=== PATIENT | male | born 1985 | race Caucasian/White ===

== ENCOUNTER 2025-05-06 14:46 | Observation (INO) ==
--- NOTE | 2025-05-06 14:57 | DR.ABDMALE ---
HPI Time seen Time Seen by Provider: 05/06/25 14:54 HPI comment HPI Comment: Patient is a 39-year-old male with history of diverticulitis status post resection with colostomy and reversal who presents to ED with acute onset of diffuse abd pain. Due to pain patient has not able to answer questions appropriately. His significant other in the room is the primary historian. She states that his pain started this morning as a dull ache. He thought it was his normal abdominal cramping and he took a Bentyl. However it progressively got worse throughout the day to the point where he has bent over in agony. He has vomited multiple times today. Emesis is Bilious but nonbloody.Last bowel movement was yesterday and for him it was normal. Denies any hematochezia, melena, or diarrhea. He does feel nauseous currently. He has not taken anything for pain. Denies any fevers, chills, chest pain, or shortness of breath. ROS Review of Systems All Other Systems: Reviewed and Negative PE Vital Signs Vital Signs: Temp Pulse Resp BP Pulse Ox O2 Del Method 05/06/25 20:16 20 05/06/25 20:15 158/85 05/06/25 20:15 71 100 05/06/25 20:13 84 100 05/06/25 19:45 82 99 05/06/25 19:30 68 100 05/06/25 19:30 161/103 05/06/25 19:15 64 99 05/06/25 19:07 97.8 F 67 100 05/06/25 17:21 20 05/06/25 15:32 20 05/06/25 15:10 18 05/06/25 14:56 98.9 F 83 20 149/99 99 Room Air Other Exam Other Exam: GEN: Lying in the position rocking [id number] crying Lungs: CTABL Heart RRR Abdomen: Diffuse abdominal tenderness, no distention, some guarding COURSE Treatment Treatment: CBC, CMP, and CT abd was ordered. He was given 30mg toradol. Reevaluation 1st: Unchanged (Pain not controlled with Toradol. Elevated WBC appreciated. Pt given 2mg [place] with some relief.) 2nd: Unchanged (Relief of pain short lived. CT abd was negative for acute process but did show large stool burden. Will give IV Tylenol and Mag Citrate and re-evaluate. ) ROR Labs Reviewed 05/06/25 15:04 05/06/25 15:04 Laboratory: WBC 12.7 X10^3/uL (3.6-10.0) H 05/06/25 15:04 RBC 4.94 X10^6/uL (4.7-6.0) 05/06/25 15:04 Hgb 13.1 g/dL (13.5-18.0) L 05/06/25 15:04 Hct 39.7 % (42.0-54.0) L 05/06/25 15:04 MCV 80.4 fL (80.0-100.0) 05/06/25 15:04 MCH 26.6 pg (27.0-34.0) L 05/06/25 15:04 MCHC 33.1 g/dL (33.0-35.0) 05/06/25 15:04 RDW 14.5 % (11.6-16.5) 05/06/25 15:04 Plt Count 388 X10^3/uL (150.0-450.0) 05/06/25 15:04 MPV 6.6 fL (7.4-11.0) L 05/06/25 15:04 Neut % (Auto) 83.3 % (42.0-75.0) H 05/06/25 15:04 Lymph % (Auto) 11.7 % (21.0-51.0) L 05/06/25 15:04 [place] % (Auto) 3.6 % (0.0-13.0) 05/06/25 15:04 Eos % (Auto) 0.7 % (0.9-2.9) L 05/06/25 15:04 Baso % (Auto) 0.7 % (0.2-1.0) 05/06/25 15:04 Neut # (Auto) 10.6 x10^3/uL (2.2-4.8) H 05/06/25 15:04 Lymph # (Auto) 1.5 X10^3/uL (1.3-2.9) 05/06/25 15:04 [place] # (Auto) 0.5 x10^3/uL (0.3-0.8) 05/06/25 15:04 Eos # (Auto) 0.1 x10^3/uL (0.0-0.2) 05/06/25 15:04 Baso # (Auto) 0.1 X10^3/uL (0.0-0.1) 05/06/25 15:04 Absolute Nucleated RBC 0.0 /100WBC 05/06/25 15:04 Sodium 140 mmol/L (136-145) 05/06/25 15:04 Corrected Sodium 140 mmol/L (136-145) 05/06/25 15:04 Potassium 4.0 mmol/L (3.5-5.1) 05/06/25 15:04 Chloride 102 mmol/L (98-107) 05/06/25 15:04 Carbon Dioxide 27.7 mmol/L (21-32) 05/06/25 15:04 BUN 12 mg/dL (7-18) 05/06/25 15:04 Creatinine 0.98 mg/dL (0.70-1.30) 05/06/25 15:04 Est GFR (MDRD) Af Amer > 60 (>60) 05/06/25 15:04 Est GFR (MDRD) Non-Af > 60 (>60) 05/06/25 15:04 Glucose 114 mg/dL (65-99) H 05/06/25 15:04 Calcium 9.0 mg/dL (8.5-10.1) 05/06/25 15:04 Corrected Calcium TNP 05/06/25 15:04 Total Bilirubin 0.30 mg/dL (0.2-1.0) 05/06/25 15:04 AST 28 Units/L (15-37) 05/06/25 15:04 ALT 51 Units/L (12-78) 05/06/25 15:04 Alkaline Phosphatase 87 Units/L (46-116) 05/06/25 15:04 Total Protein 8.1 g/dL (6.4-8.2) 05/06/25 15:04 Albumin 4.0 g/dL (3.4-5.0) 05/06/25 15:04 Globulin 4.1 g/dL (2.5-4.5) 05/06/25 15:04 Albumin/Globulin Ratio 1.0 Ratio (1.1-2.1) L 05/06/25 15:04 Lipase 45 Units/L (16-77) 05/06/25 15:04 XRAY X-ray Results: Name: Van Borja : 1985 Sex: M Location: ER Order Number(s): [id number] Procedure(s):CT ABDOMEN/PELVIS WITH CON Ordering Physician: Cliff Dinh Primary Care: NFD,None Service Date: 05/06/25 Service Time: 1724 EXAM: CT ABDOMEN AND PELVIS WITH CONTRAST HISTORY: Pt states that this morning he developed a sudden onset of periumbilical pain described as constant sharp stabbing in nature. No alleviating or exacerbating factors noted. Pain is associated with nausea and vomiting.; COMPARISON: None. TECHNIQUE: Axial CT images were obtained through the abdomen and pelvis after the intravenous administration of contrast. Coronal and sagittal reformatted images were included. All CT scans at this facility use dose modulation, iterative reconstruction, and/or weight based dosing when appropriate to reduce radiation dose to as low as reasonably achievable. FINDINGS: Technical note: There was some patient motion artifact. LOWER THORAX: Unremarkable. ABDOMEN: LIVER: Unremarkable. GALLBLADDER: Unremarkable. SPLEEN: Unremarkable. PANCREAS: Unremarkable. KIDNEYS: Bilateral nephrolithiasis. Ureters are unremarkable. ADRENAL GLANDS: Unremarkable. ABDOMINAL AORTA: Unremarkable. LYMPH NODES: No evidence of enlarged nodes. GI TRACT: No evidence for intestinal obstruction. ASCITES: None. PNEUMOPERITONEUM: None. There are tiny anterior midline supraumbilical abdominal wall hernias containing fat. No evidence for inflammation. The umbilicus is unremarkable. PELVIS: APPENDIX: Appendix is not visualized however there is no evidence for pericecal inflammation. RECTOSIGMOID COLON: Anastomotic surgical sutures of the sigmoid colon otherwise rectosigmoid colon is unremarkable. BLADDER: Unremarkable. GENITALS: Prostate is not enlarged. ASCITES: None. LYMPH NODES: No evidence for enlarged nodes. INGUINAL HERNIA: Tiny fat containing left inguinal hernia. BONES: No acute osseous findings. Schmorl's nodes of the superior endplates of L1 and L2. IMPRESSION: No evidence for acute process of the abdomen or pelvis. The appendix is not visualized however there is no evidence for pericecal inflammation. Anastomotic surgical sutures of the sigmoid colon. Bilateral nephrolithiasis. There are tiny anterior midline supraumbilical abdominal wall hernias containing fat. No evidence for inflammation. THIS IS AN ELECTRONICALLY VERIFIED FINAL REPORT 05/06/2025 8:17 PM - Electronically signed by Edwin Strickland DO Report Electronically signed: 05/06/252016 CC: Cliff Dinh Opioid Opioid Risk Tool Total: 0 Total Score Risk Category: Low Risk Copyright: Matthew ZALDIVAR predicting aberrant behaviors Discharge Plan Diagnosis Discharge Problem: Abdominal pain Discharge Plan Patient Disposition: 09 ADMITTED INPATIENT Condition: Stable Prescriptions: No Action [facility] Concerns: Post Hospitalization: new medications and changes needed to prevent readmission or further decline. Pt educated and given instructions on all concerns. Plan of Treatment: Continue with present treatment and follow up plan. Pt is to keep follow up appointment as instructed and take medications as ordered. Orders to Discharge Patient Discharge Orders: Transfer (Routine); Ordered 05/06/25 Ordered By: Cliff Dinh Follow ups/Referrals Follow ups/Referrals: NFD,None [Primary Care Provider] - 3 days Instructions Stand Alone Forms: Find Help Web Site, Post Hospital Follow Up Care Print Language: [place] Provider Note Additional Notes Patient is a 39-year-old male who presented with acute abdominal pain 1 day. Pain is 10/10. Was not able to control his pain with his 30 mg of Toradol, 1000 mg of IV Tylenol, and 6 mg of morphine. Was also not able to control his nausea with 8 mg of Zofran. CBC revealed mild leukocytosis most likely secondary to leukemoid reaction secondary to pain. CT imaging was obtained and did not reveal any acute pathology to explain his severe abdominal pain. The Differential diagnosis of bowel perforation, small bowel/large bowel obstruction, incarcerated hernia was not visualized on CT imgining w/wo contrast. Clinical concern for mesenteric ischemia is low. Lipase was low and did not indicate acute pancreatitis. Appendix was not visualized properly on CT imaging. May require a ultrasound. Suspect his abdominal pain may be due to constipation. He was given mag citrate and oral contrast in hopes of relieving the stool visualized on CT. Due to his intractable nausea and pain I contacted the hospitalist Dr. Huston and discussed the case. She agreed to admit him for observation and pain management. Will insert NG tube and try to decompress the stomach in hopes of decreasing his nausea and abdominal pain. She recommended I consult the general surgeon Dr. Holcomb. I spoke to him on the phone and he stated he would evaluate.
[2025-05-06] MEDS: TORADOL 30 MG VIAL IVP ONE (15:10)
[2025-05-06] MEDS: ZOFRAN INJ 4 MG VIAL IVP ONE ×2 (15:11→18:05)
[2025-05-06 15:16] LABS: MEAN PLATELET VOLUME 6.6 fL (7.4-11.0); RED CELL DISTRIBUTION WIDTH 14.5 % (11.6-16.5)
[2025-05-06 15:24] LABS: COR NA(FOR HYPERGLY) 140 mmol/L (136-145); CREATININE 0.98 mg/dL (0.70-1.30); eGFR NON BLACK RACES > 60 (>60)
[2025-05-06] MEDS: MORPHINE SULFATE INJ 4 MG IVP ONE ×3 (15:32→20:16)
--- NOTE | 2025-05-06 15:56 | CT ---
EXAM: CT ABDOMEN AND PELVIS WITHOUT CONTRAST HISTORY: Pt states that this morning he developed a sudden onset of periumbilical pain described as constant sharp stabbing in nature. No alleviating or exacerbating factors noted. Pain is associated with nausea and vomiting.; COMPARISON: None. TECHNIQUE: Axial CT images were obtained through the abdomen and pelvis without contrast. Coronal reformatted images were included. All CT scans at this facility use dose modulation, iterative reconstruction, and/or weight based dosing when appropriate to reduce radiation dose to as low as reasonably achievable. FINDINGS: Technical note: Without the use of intravenous contrast, evaluation of solid abdominal viscera, vascular structures, urinary structures, and bowel is limited. LOWER THORAX: Unremarkable. ABDOMEN: LIVER: Unremarkable. GALLBLADDER: Unremarkable. SPLEEN: Unremarkable. PANCREAS: Unremarkable. KIDNEYS: Bilateral nephrolithiasis. The ureters are unremarkable. No obstructive uropathy. ADRENAL GLANDS: Unremarkable. ABDOMINAL AORTA: Unremarkable. LYMPH NODES: No evidence of enlarged nodes. GI TRACT: No evidence for intestinal obstruction. Surgical sutures of the junction between the descending colon and the sigmoid colon. Surgical sutures of a small bowel loop within the pelvis. ASCITES: None. PNEUMOPERITONEUM: None. PELVIS: APPENDIX: Appendix is not visualized however there is no evidence for pericecal inflammation. RECTOSIGMOID COLON: Surgical anastomotic sutures at the junction between the sigmoid colon and distal descending colon. Otherwise unremarkable. BLADDER: Unremarkable GENITALS: Prostate does not appear to be enlarged. ASCITES: None. LYMPH NODES: No evidence for enlarged nodes. INGUINAL HERNIA: Tiny fat containing left inguinal hernia. BONES: Prominent Schmorl's nodes of the endplates of L1 and L2. Degenerative changes of the spine. IMPRESSION: No evidence for acute process of the abdomen or pelvis. Appendix is not visualized however there is no evidence for pericecal inflammation. Surgical sutures of the junction between the descending colon and the sigmoid colon. Surgical sutures of a small bowel loop within the pelvis. Bilateral nephrolithiasis. THIS IS AN ELECTRONICALLY VERIFIED FINAL REPORT 05/06/2025 3:52 PM - Electronically signed by Edwin Strickland DO
[2025-05-06] MEDS: OFIRMEV IV 1000 MG VIAL 1,000 MG/100 ML VIAL IV ONE (16:30)
[2025-05-06] MEDS: CITROMA PO ONE (16:30)
[2025-05-06] MEDS: NS 1,000 ML IV 1,000 ML IV ONE (17:28)
--- NOTE | 2025-05-06 20:20 | CT ---
EXAM: CT ABDOMEN AND PELVIS WITH CONTRAST HISTORY: Pt states that this morning he developed a sudden onset of periumbilical pain described as constant sharp stabbing in nature. No alleviating or exacerbating factors noted. Pain is associated with nausea and vomiting.; COMPARISON: None. TECHNIQUE: Axial CT images were obtained through the abdomen and pelvis after the intravenous administration of contrast. Coronal and sagittal reformatted images were included. All CT scans at this facility use dose modulation, iterative reconstruction, and/or weight based dosing when appropriate to reduce radiation dose to as low as reasonably achievable. FINDINGS: Technical note: There was some patient motion artifact. LOWER THORAX: Unremarkable. ABDOMEN: LIVER: Unremarkable. GALLBLADDER: Unremarkable. SPLEEN: Unremarkable. PANCREAS: Unremarkable. KIDNEYS: Bilateral nephrolithiasis. Ureters are unremarkable. ADRENAL GLANDS: Unremarkable. ABDOMINAL AORTA: Unremarkable. LYMPH NODES: No evidence of enlarged nodes. GI TRACT: No evidence for intestinal obstruction. ASCITES: None. PNEUMOPERITONEUM: None. There are tiny anterior midline supraumbilical abdominal wall hernias containing fat. No evidence for inflammation. The umbilicus is unremarkable. PELVIS: APPENDIX: Appendix is not visualized however there is no evidence for pericecal inflammation. RECTOSIGMOID COLON: Anastomotic surgical sutures of the sigmoid colon otherwise rectosigmoid colon is unremarkable. BLADDER: Unremarkable. GENITALS: Prostate is not enlarged. ASCITES: None. LYMPH NODES: No evidence for enlarged nodes. INGUINAL HERNIA: Tiny fat containing left inguinal hernia. BONES: No acute osseous findings. Schmorl's nodes of the superior endplates of L1 and L2. IMPRESSION: No evidence for acute process of the abdomen or pelvis. The appendix is not visualized however there is no evidence for pericecal inflammation. Anastomotic surgical sutures of the sigmoid colon. Bilateral nephrolithiasis. There are tiny anterior midline supraumbilical abdominal wall hernias containing fat. No evidence for inflammation. THIS IS AN ELECTRONICALLY VERIFIED FINAL REPORT 05/06/2025 8:17 PM - Electronically signed by Edwin Strickland DO
--- NOTE | 2025-05-06 21:31 | DR.ABDMALE ---
HPI Time seen Time Seen by Provider: 05/06/25 14:54 PCP Primary Care Physician: Dr. Ortez in [place] Complaint Chief Complaint:: Pt states that this morning he developed a sudden onset of periumbilical pain described as constant sharp stabbing in nature. No alleviating or exacerbating factors noted. Pain is associated with nausea and vomiting. Denies any diarrhea, constipation or fever.Pt last had a normal bowel movement yesterday. Self Treatment fo Chief Complaint: Pt has taken Bentyl twice today - last at 1300 - with no improvement of symptoms. COVID-19 Coronavirus risk:travel/contact w/high risk person: No Has patient experienced Coronavirus symptoms: No Mode of arrival Mode of Arrival: Ambulatory Timing Onset of Chief Complaint: 05/06/25 PMH PMH Past Medical History: Yes Past Medical History Comment: Diverticulitis Past Surgical History: Yes Past Surgical History Comment: bowel resection with colostomy and colostomy reversal Family History History of Family Medical Conditions: Yes Family Medical History: Cancer Social History Does patient currently use any type of tobacco product: No Have you used tobacco products in the last 12 months: No Type of Tobacco Use: None Does any household member use tobacco: No Alcohol Use: None Do you use any recreational Drugs:: No Lives With: Family Lives Where: Home Travel Risk Coronavirus risk:travel/contact w/high risk person: No Has patient experienced Coronavirus symptoms: No Infectious screening In the last 2 months have you had wt loss of >10#?: NO Have you had fever, night sweats or hemotysis?: No Have you traveled outside the country in the last 6 months?: No Isolation: Standard PE Vital Signs Vital Signs: Temp Pulse Resp BP Pulse Ox O2 Del Method 05/06/25 20:16 20 05/06/25 20:15 158/85 05/06/25 20:15 71 100 05/06/25 20:13 84 100 05/06/25 19:45 82 99 05/06/25 19:30 68 100 05/06/25 19:30 161/103 05/06/25 19:15 64 99 05/06/25 19:07 97.8 F 67 100 05/06/25 17:21 20 05/06/25 15:32 20 05/06/25 15:10 18 05/06/25 14:56 98.9 F 83 20 149/99 99 Room Air ROR Labs Reviewed 05/06/25 15:04 05/06/25 15:04 Laboratory: WBC 12.7 X10^3/uL (3.6-10.0) H 05/06/25 15:04 RBC 4.94 X10^6/uL (4.7-6.0) 05/06/25 15:04 Hgb 13.1 g/dL (13.5-18.0) L 05/06/25 15:04 Hct 39.7 % (42.0-54.0) L 05/06/25 15:04 MCV 80.4 fL (80.0-100.0) 05/06/25 15:04 MCH 26.6 pg (27.0-34.0) L 05/06/25 15:04 MCHC 33.1 g/dL (33.0-35.0) 05/06/25 15:04 RDW 14.5 % (11.6-16.5) 05/06/25 15:04 Plt Count 388 X10^3/uL (150.0-450.0) 05/06/25 15:04 MPV 6.6 fL (7.4-11.0) L 05/06/25 15:04 Neut % (Auto) 83.3 % (42.0-75.0) H 05/06/25 15:04 Lymph % (Auto) 11.7 % (21.0-51.0) L 05/06/25 15:04 [place] % (Auto) 3.6 % (0.0-13.0) 05/06/25 15:04 Eos % (Auto) 0.7 % (0.9-2.9) L 05/06/25 15:04 Baso % (Auto) 0.7 % (0.2-1.0) 05/06/25 15:04 Neut # (Auto) 10.6 x10^3/uL (2.2-4.8) H 05/06/25 15:04 Lymph # (Auto) 1.5 X10^3/uL (1.3-2.9) 05/06/25 15:04 [place] # (Auto) 0.5 x10^3/uL (0.3-0.8) 05/06/25 15:04 Eos # (Auto) 0.1 x10^3/uL (0.0-0.2) 05/06/25 15:04 Baso # (Auto) 0.1 X10^3/uL (0.0-0.1) 05/06/25 15:04 Absolute Nucleated RBC 0.0 /100WBC 05/06/25 15:04 Sodium 140 mmol/L (136-145) 05/06/25 15:04 Corrected Sodium 140 mmol/L (136-145) 05/06/25 15:04 Potassium 4.0 mmol/L (3.5-5.1) 05/06/25 15:04 Chloride 102 mmol/L (98-107) 05/06/25 15:04 Carbon Dioxide 27.7 mmol/L (21-32) 05/06/25 15:04 BUN 12 mg/dL (7-18) 05/06/25 15:04 Creatinine 0.98 mg/dL (0.70-1.30) 05/06/25 15:04 Est GFR (MDRD) Af Amer > 60 (>60) 05/06/25 15:04 Est GFR (MDRD) Non-Af > 60 (>60) 05/06/25 15:04 Glucose 114 mg/dL (65-99) H 05/06/25 15:04 Calcium 9.0 mg/dL (8.5-10.1) 05/06/25 15:04 Corrected Calcium TNP 05/06/25 15:04 Total Bilirubin 0.30 mg/dL (0.2-1.0) 05/06/25 15:04 AST 28 Units/L (15-37) 05/06/25 15:04 ALT 51 Units/L (12-78) 05/06/25 15:04 Alkaline Phosphatase 87 Units/L (46-116) 05/06/25 15:04 Total Protein 8.1 g/dL (6.4-8.2) 05/06/25 15:04 Albumin 4.0 g/dL (3.4-5.0) 05/06/25 15:04 Globulin 4.1 g/dL (2.5-4.5) 05/06/25 15:04 Albumin/Globulin Ratio 1.0 Ratio (1.1-2.1) L 05/06/25 15:04 Lipase 45 Units/L (16-77) 05/06/25 15:04 Opioid Opioid Risk Tool Age (Nate box if 16-45): Yes History of Preadolescent Sexual Abuse: No Total: 1 Total Score Risk Category: Low Risk Copyright: Matthew ZALDIVAR predicting aberrant behaviors Discharge Plan Diagnosis Discharge Problem: Abdominal pain Discharge Plan Patient Disposition: ADMITTED INPATIENT Condition: Stable Orders to Discharge Patient Discharge Orders: Transfer (Routine); Ordered 05/06/25 Ordered By: Cliff Dinh Provider Note Additional Notes While waiting for a hospital bed the patient started to have a panic attack due to the NG tube in his nose. He had 2 bouts of emesis after placement with some improvement in his pain. However, he was requesting the NG tube be removed as it was causing him to "freak out" it to be. Removal would beat the purpose of gastric decompression. I informed him that the tube would need to remain in place. He was given 0.5 mg of Ativan to help calm him down.
--- NOTE | 2025-05-06 21:43 | DR.ABDMALE ---
HPI Time seen Time Seen by Provider: 05/06/25 14:54 PCP Primary Care Physician: Dr. Ortez in [place] Complaint Chief Complaint:: Pt states that this morning he developed a sudden onset of periumbilical pain described as constant sharp stabbing in nature. No alleviating or exacerbating factors noted. Pain is associated with nausea and vomiting. Denies any diarrhea, constipation or fever.Pt last had a normal bowel movement yesterday. Self Treatment fo Chief Complaint: Pt has taken Bentyl twice today - last at 1300 - with no improvement of symptoms. COVID-19 Coronavirus risk:travel/contact w/high risk person: No Has patient experienced Coronavirus symptoms: No Mode of arrival Mode of Arrival: Ambulatory Timing Onset of Chief Complaint: 05/06/25 PMH PMH Past Medical History: Yes Past Medical History Comment: Diverticulitis Past Surgical History: Yes Past Surgical History Comment: bowel resection with colostomy and colostomy reversal Family History History of Family Medical Conditions: Yes Family Medical History: Cancer Social History Does patient currently use any type of tobacco product: No Have you used tobacco products in the last 12 months: No Type of Tobacco Use: None Does any household member use tobacco: No Alcohol Use: None Do you use any recreational Drugs:: No Lives With: Family Lives Where: Home Travel Risk Coronavirus risk:travel/contact w/high risk person: No Has patient experienced Coronavirus symptoms: No Infectious screening In the last 2 months have you had wt loss of >10#?: NO Have you had fever, night sweats or hemotysis?: No Have you traveled outside the country in the last 6 months?: No Isolation: Standard PE Vital Signs Vital Signs: Temp Pulse Resp BP Pulse Ox O2 Del Method 05/06/25 20:16 20 05/06/25 20:15 158/85 05/06/25 20:15 71 100 05/06/25 20:13 84 100 05/06/25 19:45 82 99 05/06/25 19:30 68 100 05/06/25 19:30 161/103 05/06/25 19:15 64 99 05/06/25 19:07 97.8 F 67 100 05/06/25 17:21 20 05/06/25 15:32 20 05/06/25 15:10 18 05/06/25 14:56 98.9 F 83 20 149/99 99 Room Air ROR Labs Reviewed 05/06/25 15:04 05/06/25 15:04 Laboratory: WBC 12.7 X10^3/uL (3.6-10.0) H 05/06/25 15:04 RBC 4.94 X10^6/uL (4.7-6.0) 05/06/25 15:04 Hgb 13.1 g/dL (13.5-18.0) L 05/06/25 15:04 Hct 39.7 % (42.0-54.0) L 05/06/25 15:04 MCV 80.4 fL (80.0-100.0) 05/06/25 15:04 MCH 26.6 pg (27.0-34.0) L 05/06/25 15:04 MCHC 33.1 g/dL (33.0-35.0) 05/06/25 15:04 RDW 14.5 % (11.6-16.5) 05/06/25 15:04 Plt Count 388 X10^3/uL (150.0-450.0) 05/06/25 15:04 MPV 6.6 fL (7.4-11.0) L 05/06/25 15:04 Neut % (Auto) 83.3 % (42.0-75.0) H 05/06/25 15:04 Lymph % (Auto) 11.7 % (21.0-51.0) L 05/06/25 15:04 [place] % (Auto) 3.6 % (0.0-13.0) 05/06/25 15:04 Eos % (Auto) 0.7 % (0.9-2.9) L 05/06/25 15:04 Baso % (Auto) 0.7 % (0.2-1.0) 05/06/25 15:04 Neut # (Auto) 10.6 x10^3/uL (2.2-4.8) H 05/06/25 15:04 Lymph # (Auto) 1.5 X10^3/uL (1.3-2.9) 05/06/25 15:04 [place] # (Auto) 0.5 x10^3/uL (0.3-0.8) 05/06/25 15:04 Eos # (Auto) 0.1 x10^3/uL (0.0-0.2) 05/06/25 15:04 Baso # (Auto) 0.1 X10^3/uL (0.0-0.1) 05/06/25 15:04 Absolute Nucleated RBC 0.0 /100WBC 05/06/25 15:04 Sodium 140 mmol/L (136-145) 05/06/25 15:04 Corrected Sodium 140 mmol/L (136-145) 05/06/25 15:04 Potassium 4.0 mmol/L (3.5-5.1) 05/06/25 15:04 Chloride 102 mmol/L (98-107) 05/06/25 15:04 Carbon Dioxide 27.7 mmol/L (21-32) 05/06/25 15:04 BUN 12 mg/dL (7-18) 05/06/25 15:04 Creatinine 0.98 mg/dL (0.70-1.30) 05/06/25 15:04 Est GFR (MDRD) Af Amer > 60 (>60) 05/06/25 15:04 Est GFR (MDRD) Non-Af > 60 (>60) 05/06/25 15:04 Glucose 114 mg/dL (65-99) H 05/06/25 15:04 Lactic Acid 1.7 mmol/L (0.4-2.0) 05/06/25 20:46 Calcium 9.0 mg/dL (8.5-10.1) 05/06/25 15:04 Corrected Calcium TNP 05/06/25 15:04 Total Bilirubin 0.30 mg/dL (0.2-1.0) 05/06/25 15:04 AST 28 Units/L (15-37) 05/06/25 15:04 ALT 51 Units/L (12-78) 05/06/25 15:04 Alkaline Phosphatase 87 Units/L (46-116) 05/06/25 15:04 Total Protein 8.1 g/dL (6.4-8.2) 05/06/25 15:04 Albumin 4.0 g/dL (3.4-5.0) 05/06/25 15:04 Globulin 4.1 g/dL (2.5-4.5) 05/06/25 15:04 Albumin/Globulin Ratio 1.0 Ratio (1.1-2.1) L 05/06/25 15:04 Lipase 45 Units/L (16-77) 05/06/25 15:04 Opioid Opioid Risk Tool Age (Nate box if 16-45): Yes History of Preadolescent Sexual Abuse: No Total: 1 Total Score Risk Category: Low Risk Copyright: Matthew ZALDIVAR predicting aberrant behaviors Discharge Plan Diagnosis Discharge Problem: Abdominal pain Discharge Plan Patient Disposition: ADMITTED INPATIENT Condition: Stable Orders to Discharge Patient Discharge Orders: Transfer (Routine); Ordered 05/06/25 Ordered By: Cliff Dinh Provider Note Additional Notes No Ativan was available in the Pyxis and had to be ordered from the pharmacy. Patient could not tolerate the NG tube and was requesting it to be removed. Patient could not wait for the medication and the NG tube was pulled due to his distress over the tube in his throat.
--- NOTE | 2025-05-06 21:49 | RAD ---
EXAM: KUB HISTORY: Ng tube placement; COMPARISON: No relevant prior studies available. TECHNIQUE: AP supine projection, 2 images FINDINGS: Esophagogastric tube tip is in the body of the stomach. No gross free air. No abnormal calcifications. No acute osseous abnormality. IMPRESSION: Esophagogastric tube tip is in the body of the stomach. THIS IS AN ELECTRONICALLY VERIFIED FINAL REPORT 05/06/2025 9:46 PM - Electronically signed by Too Tena MD
[2025-05-06] MEDS ORDERED: ZOFRAN INJ 4 MG VIAL IVP PRN (21:51)
[2025-05-06] MEDS ORDERED: MORPHINE SULFATE INJ 4 MG IVP PRN (21:51)
[2025-05-06 22:52] VITALS: BMI 29.6
[2025-05-06] MEDS: NS 1,000 ML IV 1,000 ML IV SCH (23:20)
[2025-05-06] MEDS: OFIRMEV IV 1000 MG VIAL 1,000 MG/100 ML VIAL IV SCH (23:34)
[2025-05-06] MEDS: RESTORIL CAP 15 MG PO PRN (23:47)
[2025-05-07] MEDS: TORADOL 30 MG VIAL ONE (02:15)
[2025-05-07] MEDS: MORPHINE SULFATE INJ 2 MG INJ ONE (02:15)
[2025-05-07] MEDS: OMNIPAQUE 350 mg/mL 100 mL BTL 100 ML ONE (02:16)
[2025-05-07] MEDS: READI-CAT 2 ONE (02:16)
[2025-05-07] MEDS: CONSULT PHARMACY - POTASSIUM & MAGNESIUM XX SCH (02:20)
[2025-05-07] MEDS: ATIVAN INJ 2 MG VIAL IVP ONE (02:20)
[2025-05-07 05:09] LABS: MEAN PLATELET VOLUME 6.9 fL (7.4-11.0); RED CELL DISTRIBUTION WIDTH 14.5 % (11.6-16.5)
[2025-05-07 05:22] LABS: CREATININE 0.85 mg/dL (0.70-1.30); eGFR NON BLACK RACES > 60 (>60)
[2025-05-07] MEDS ORDERED: CONSULT PHARMACY - POTASSIUM & MAGNESIUM XX SCH (06:00)
[2025-05-07 08:33] VITALS: BP 146/75; PULSE 92; RESP 20; TEMP 98; O2SAT 96
[2025-05-07] MEDS: K-RIDER 10 MEQ/100 ML WATER 10 MEQ/100 ML BAG IV SCH (09:09)
[2025-05-07] MEDS: NS 250 ML IV 250 ML IV ONE (09:09)
[2025-05-07] MEDS: CITROMA PO ONE (10:26)
[2025-05-07] MEDS: DILAUDID INJ IVP PRN (11:08)
--- NOTE | 2025-05-07 11:11 | DR.CONSULT ---
CONSULT Consultation for Day of: Date: 05/07/25 Chief Complaint Chief Complaint: abdominal pain Allergies Allergies Allergy/AdvReac Type Severity Reaction Status Date / Time No Known Allergies Allergy Verified 05/06/25 14:54 History of Present Illness History of Present Illness: This is a 39-year-old who several years ago had perforated sigmoid diverticulitis requiring resection, temporary colostomy and subsequent takedown. He presents now with acute onset of abdominal pain was seen in the emergency room and has not had relief despite IV pain medications and laxatives. CT scan does not show anything obviously acute. He is not acidotic. No other significant past medical problems. CT scan does show some stool in the sigmoid colon. This a.m. patient's pain is resolved. Past Medical History Additional Medical History: history sigmoid diverticulitis with perforation Past Surgical History Surgical History: Bowel Resection and Ortho Surgery Family History Family Medical History: Cancer, [place], Sudden Cardiac and Hypertension Social History Does patient currently use any type of tobacco product: Yes Have you used tobacco products in the last 12 months: No Type of Tobacco Use: Vape How many years tobacco product used: 20 Does any household member use tobacco: Yes (Vape) Alcohol Use: Rarely Drug Use: None Medications Home Medications: No Known Allergies Allergy (Verified 05/06/25 14:54) CONTINUE taking the following medications NK 05/06/25 [History] Review of Systems Constitutional: See HPI Eyes: No Symptoms Reported ENT: No Symptoms Reported Respiratory: No Symptoms Reported Cardiovascular: No Symptoms Reported Gastrointestinal: See HPI Genitourinary: No Symptoms Reported Musculoskeletal: No Symptoms Reported Skin: No Symptoms Reported Neurological: No Symptoms Reported Physical Exam Vital Signs: Vital Signs Temperature 98.0 F Temperature 97.8 F Pulse Rate [Radial] 92 Pulse Rate [Radial] 87 Respiratory Rate 20 Respiratory Rate 18 Blood Pressure [Left Arm] 146/75 Blood Pressure [Left Arm] 118/71 O2 Sat by Pulse Oximetry 96 O2 Sat by Pulse Oximetry 97 Oriented: Normal, Time, Person and Place Eyes: Normal Ear: Normal Nose: Normal Throat: Normal Respiratory: Clear Throughout Cardiovascular: Normal : Normal Auscultation: Bowel Sounds: Normal Palpation: Normal and Other (Healed midline incision no obvious hernia. CT scan did show small area of hernia which cannot be palpated) Tenderness: Normal Skin: Normal Musculoskeletal: Normal Psychiatric: Normal Mood Description: Calm Affect: Normal Speech Pattern: Clear Plan (1) Abdominal pain: Status: Acute Plan: History of perforated diverticulitis of the sigmoid colon status post resection, end colostomy, subsequent colostomy takedown now with abdominal pain now resolved. This could be constipation. Patient will be started on a regular diet. Start him on Metamucil daily and another dose of magnesium citrate. Patient is from [place]. I recommend that when he gets back to [place] he had has his PCP refer him for possible follow-up colonoscopy. No acute problem at this time.
--- NOTE | 2025-05-08 10:31 | DR.SSS ---
SHORT STAY SUMMARY Admission Date Date of Admission: 05/06/25 Discharge Date Discharge Date: 05/07/25 Admission Diagnoses Admission Diagnoses: Abdominal pain Nausea & Vomiting Discharge Diagnoses Discharge Diagnoses: Gatroenteritis Nausea & vomiting Constipation Chief Complaint Chief Complaint: abdominal pain, N/V History of Present Illness History of Present Illness: Patient is a 39-year-old male with a PMH of perforated sigmoid diverticulitis requiring resection presented with sudden onset of periumbilical pain which he described as sharp in nature. He also had associated nausea and vomiting. He denied having any diarrhea, fever or chills. ER workup included labs which did not show any pertinent abnormalities. CTAP was done with and without contrast which showed some constipation but no other acute changes. Patient was treated with fluids, pain medications and laxatives but continued to have worsening pain. He was admitted for further management. Surgery was also consulted. Past Surgical History Surgical History: Bowel Resection and Ortho Surgery Allergies Allergies Allergy/AdvReac Type Severity Reaction Status Date / Time No Known Allergies Allergy Verified 05/06/25 14:54 Medications Home Medications: No Known Allergies Allergy (Verified 05/06/25 14:54) CONTINUE taking the following medications NK 05/06/25 [History] Family History Family Medical History: Cancer, [place], Sudden Cardiac and Hypertension Social History Does patient currently use any type of tobacco product: Yes Have you used tobacco products in the last 12 months: No Type of Tobacco Use: Vape How many years tobacco product used: 20 Does any household member use tobacco: Yes (Vape) Alcohol Use: Rarely Drug Use: None Review of Systems Constitutional: No Symptoms Reported Eyes: No Symptoms Reported ENT: No Symptoms Reported Respiratory: No Symptoms Reported Cardiovascular: No Symptoms Reported Gastrointestinal: Nausea, Vomiting and Abdominal Pain Genitourinary: No Symptoms Reported Musculoskeletal: No Symptoms Reported Skin: No Symptoms Reported Neurological: No Symptoms Reported Physical Exam Vital Signs: Last Vital Signs Temp 98.0 F 05/07/25 08:32 Pulse 92 H 05/07/25 08:32 Resp 20 05/07/25 08:32 BP 146/75 05/07/25 08:32 Pulse Ox 96 05/07/25 08:32 O2 Del Method Room Air 05/07/25 09:15 Oriented: Normal Eyes: Normal Ear: Normal Throat: Normal Respiratory: Clear Throughout Cardiovascular: Normal Auscultation: Bowel Sounds: Normal Palpation: Normal Tenderness: Normal Skin: Normal Musculoskeletal: Normal Psychiatric: Normal Mood Description: Calm Affect: Normal Speech Pattern: Clear and Appropriate Labs Labs: Laboratory Last Values WBC 9.9 X10^3/uL (3.6-10.0) 05/07/25 04:31 RBC 4.53 X10^6/uL (4.7-6.0) L 05/07/25 04:31 Hgb 12.2 g/dL (13.5-18.0) L 05/07/25 04:31 Hct 36.6 % (42.0-54.0) L 05/07/25 04:31 MCV 80.9 fL (80.0-100.0) 05/07/25 04:31 MCH 26.9 pg (27.0-34.0) L 05/07/25 04:31 MCHC 33.3 g/dL (33.0-35.0) 05/07/25 04:31 RDW 14.5 % (11.6-16.5) 05/07/25 04:31 Plt Count 372 X10^3/uL (150.0-450.0) 05/07/25 04:31 MPV 6.9 fL (7.4-11.0) L 05/07/25 04:31 Neut % (Auto) 65.0 % (42.0-75.0) 05/07/25 04:31 Lymph % (Auto) 26.0 % (21.0-51.0) 05/07/25 04:31 Terry % (Auto) 8.7 % (0.0-13.0) 05/07/25 04:31 Eos % (Auto) 0.2 % (0.9-2.9) L 05/07/25 04:31 Baso % (Auto) 0.1 % (0.2-1.0) L 05/07/25 04:31 Neut # (Auto) 6.4 x10^3/uL (2.2-4.8) H 05/07/25 04:31 Lymph # (Auto) 2.6 X10^3/uL (1.3-2.9) 05/07/25 04:31 Terry # (Auto) 0.9 x10^3/uL (0.3-0.8) H 05/07/25 04:31 Eos # (Auto) 0.0 x10^3/uL (0.0-0.2) 05/07/25 04:31 Baso # (Auto) 0.0 X10^3/uL (0.0-0.1) 05/07/25 04:31 Absolute Nucleated RBC 0.1 /100WBC 05/07/25 04:31 Sodium 142 mmol/L (136-145) 05/07/25 04:31 Corrected Sodium TNP 05/07/25 04:31 Potassium 3.7 mmol/L (3.5-5.1) 05/07/25 04:31 Chloride 105 mmol/L (98-107) 05/07/25 04:31 Carbon Dioxide 28.1 mmol/L (21-32) 05/07/25 04:31 BUN 11 mg/dL (7-18) 05/07/25 04:31 Creatinine 0.85 mg/dL (0.70-1.30) 05/07/25 04:31 Est GFR (MDRD) Af Amer > 60 (>60) 05/07/25 04:31 Est GFR (MDRD) Non-Af > 60 (>60) 05/07/25 04:31 Glucose 86 mg/dL (65-99) 05/07/25 04:31 Lactic Acid 1.7 mmol/L (0.4-2.0) 05/06/25 20:46 Calcium 8.5 mg/dL (8.5-10.1) 05/07/25 04:31 Corrected Calcium TNP 05/07/25 04:31 Magnesium 2.3 mg/dL (2.0-2.9) 05/07/25 04:31 Total Bilirubin 0.50 mg/dL (0.2-1.0) 05/07/25 04:31 AST 23 Units/L (15-37) 05/07/25 04:31 ALT 38 Units/L (12-78) 05/07/25 04:31 Alkaline Phosphatase 73 Units/L (46-116) 05/07/25 04:31 Total Protein 7.1 g/dL (6.4-8.2) 05/07/25 04:31 Albumin 3.5 g/dL (3.4-5.0) 05/07/25 04:31 Globulin 3.6 g/dL (2.5-4.5) 05/07/25 04:31 Albumin/Globulin Ratio 1.0 Ratio (1.1-2.1) L 05/07/25 04:31 Lipase 45 Units/L (16-77) 05/06/25 15:04 Hospital Course Hospital Course: Patient was admitted for further evaluation of abdominal pain. NGT was attempted but patient was having increased anxiety so it was removed.. Dr. Holcomb was consulted, patient was feeling better the next day and his symptoms had resolved. His labs were monitored and electrolytes replaced as needed. He was tolerating p.o. intake. He was stable to be discharged home. Discharge Medications Discharge Medications: Home Medication List NK 05/06/25 [History] Prescriptions: Discharge Disposition Discharge Disposition: home Discharge Plan Discharge Plan Patient Disposition: 01 HOME, SELF-CARE Condition: Stable Health Concerns: Post Hospitalization: new medications and changes needed to prevent readmission or further decline. Pt educated and given instructions on all concerns. Plan of Treatment: Continue with present treatment and follow up plan. Pt is to keep follow up appointment as instructed and take medications as ordered. Prescription drug monitoring program results: PDMP reviewed and no concerns identified Prescriptions: No Action NK Orders to Discharge Patient Discharge Orders: Discharge (Routine); Ordered 05/07/25 Ordered By: Marielena Huston Follow ups/Referrals Follow ups/Referrals: NFD,None [Primary Care Provider] - 3 days Instructions Instructions: Abdominal Pain, Adult, Nausea and Vomiting, Adult Stand Alone Forms: Excuse From Work or School, Find Help Web Site, Post Hospital Follow Up Care Print Language: PORTUGUESE
== END 2025-05-07 12:30 | disposition home or self-care (01) ==
LOC: MED/SURG 14:46 → ER 14:46 → MED/SURG 21:55
PROVIDERS: ADMIT Internal Medicine; ATTEND Internal Medicine
DX: R11.2 Nausea with vomiting, unspecified; F41.0 Panic disorder [episodic paroxysmal anxiety]; Z65.8 Other specified problems related to psychosocial circumstances; K52.89 Other specified noninfective gastroenteritis and colitis; N20.0 Calculus of kidney; D64.89 Other specified anemias; Z98.890 Other specified postprocedural states; K59.09 Other constipation; R10.84 Generalized abdominal pain; Z90.49 Acquired absence of other specified parts of digestive tract; R73.09 Other abnormal glucose; K57.32 Diverticulitis of large intestine without perforation or abscess without bleeding; D72.828 Other elevated white blood cell count